=== PATIENT | female | born 1985 | race Caucasian/White ===

== ENCOUNTER 2017-05-04 14:21 | Emergency (ER) | payer BC ==
[2017-05-04 15:46] VITALS: BP 116/67
--- NOTE | 2017-05-04 15:50 | UC ---
Throat Pain/Nasal Mike HPI - HPI Summary HPI Summary: c/o nasal congestion, sore throat, sinus pressure, and productive cough worsening over 4 days. [ End ] - History of Current Complaint Chief Complaint: UCRespiratory Stated Complaint: sinus,cough,sore throat,ear pain Time Seen by Provider: 05/04/17 15:43 Hx Obtained From: Patient Hx Last Menstrual Period: 04/24/17 Onset/Duration: Gradual Onset Severity: Mild Cough: Productive - Allergies/Home Medications Allergies/Adverse Reactions: Allergies Allergy/AdvReac Type Severity Reaction Status Date / Time Penicillins Allergy Severe throat Verified 05/04/17 15:39 closes, rash,hard to breath Vancomycin Allergy Hives Verified 05/04/17 15:39 Home Medications: Home Medications Mesalamine (NF) [Lialda (NF)] 4 tab PO DAILY 05/04/17 [History Confirmed ] PMH/Surg Hx/FS Hx/Imm Hx Previously Healthy: Yes GI/ History: Other - UC Other GI/ History: UC Other History Of: Negative For: HIV, Hepatitis B, Hepatitis C, Anticoagulant Therapy - Surgical History Surgical History: Yes Surgery Procedure, Year, and Place: CHOLECYSTECTOMY. Abd surgery r/t abscess - Family History Known Family History: Positive: Cardiac Disease, Hypertension - Social History Occupation: Employed Full-time - Speech Lives: With Family Alcohol Use: Occasionally Substance Use Type: None Smoking Status (MU): Never Smoked Tobacco - Immunization History Most Recent Influenza Vaccination: Not the Season Review of Systems Constitutional: Negative, Fatigue Skin: Negative Eyes: Negative ENT: Negative, Sore Throat, Ear Ache, Nasal Discharge, Sinus Congestion, Sinus Pain/Tenderness Respiratory: Cough Cardiovascular: Negative Gastrointestinal: Negative Genitourinary: Negative Motor: Negative Neurovascular: Negative Musculoskeletal: Negative Neurological: Negative Psychological: Negative All Other Systems Reviewed And Are Negative: Yes Physical Exam Triage Information Reviewed: Yes Appearance: Well-Appearing, No Pain Distress, Well-Nourished Vital Signs: Initial Vital Signs Temp 98 F 05/04/17 15:35 Pulse 82 05/04/17 15:35 Resp 16 05/04/17 15:35 BP 116/67 05/04/17 15:35 Pulse Ox 99 05/04/17 15:35 Vital Signs Reviewed: Yes Eye Exam: Normal ENT Exam: Normal ENT: Positive: TMs normal, Other: - frontal and maxillary sinus tenderness to palpation Dental Exam: Normal Neck exam: Normal Neck: Positive: 1 Respiratory Exam: Normal Cardiovascular Exam: Normal Musculoskeletal Exam: Normal Neurological Exam: Normal Psychological Exam: Normal Skin Exam: Normal Throat Pain/Nasal Course/Dx - Course Course Of Treatment: With immune suppressant and the teeth sensitivity for a few days concern for this becoming bacterial . She will use her nasal spray, decongestant and cough suppressant and if sx worsen then to start doxy which she tolereates well in the past and aware of SE - Differential Dx/Diagnosis Differential Diagnosis/HQI/PQRI: Sinusitis, Tonsillitis, URI Provider Diagnoses: Sinusitis Discharge - Discharge Plan Condition: Good Disposition: HOME Prescriptions: Benzonatate CAP* [Tessalon 100 MG CAP*] 100 mg PO TID PRN #20 cap PRN Reason: Cough Doxycycline (Monohydrate) [Doxycycline Monohydrate] 100 mg PO BID #20 cap Patient Education Materials: Sinusitis (ED) Referrals: Luisito WHITE,Deep Nagel [Primary Care Provider] - 3 Days
== END 2017-05-04 16:05 | disposition home or self-care (01) ==
LOC: UCCORT 14:21
DX: J32.9 Chronic sinusitis, unspecified (principal); Z88.0 Allergy status to penicillin
CPT/HCPCS: 99212; G0463

== ENCOUNTER 2017-06-01 14:46 | Emergency (ER) | payer BC ==
[2017-06-01 17:03] VITALS: BP 137/67
--- NOTE | 2017-06-01 17:37 | UC ---
Skin Complaint HPI - HPI Summary HPI Summary: ROPE BURN TO RIGHT LOWER LEG SEVEN DAYS AGO, WAS HEALING BUT LAST TWO DAYS AREA HAS [id number] MORE RED AND SWOLLEN. NO DISCHARGE. NO HX OF MRSA. NO NEW INJURY. - History of Current Complaint Chief Complaint: UCSkin Time Seen by Provider: 06/01/17 17:06 Stated Complaint: ROPE BURN RIGHT LOWER LEG Hx Obtained From: Patient Hx Last Menstrual Period: 05/26/17 Onset/Duration: Gradual Onset, Lasting Weeks, Still Present Skin Exposure Onset/Duration: Days Ago Onset Severity: Mild Current Severity: Mild Pain Intensity: 1 Pain Scale Used: 0-10 Numeric Location: Discrete - RIGHT LOWER LEG Character: Redness, Raised, Painful Aggravating: Touch Associated Signs & Symptoms: Positive: Tenderness. Negative: Fever, Chills, Chest Pain, Hoarseness, Throat Tightening, Drainage Related History: Trauma - Allergy/Home Medications Allergies/Adverse Reactions: Allergies Allergy/AdvReac Type Severity Reaction Status Date / Time Penicillins Allergy Severe throat Verified 06/01/17 17:03 closes, rash,hard to breath Vancomycin Allergy Hives Verified 06/01/17 17:03 Review of Systems Constitutional: Negative Skin: Rash - RIGHT LOWER LEG ROPE BURN, CELLULITIS 3CM X 3CM Eyes: Negative ENT: Negative Respiratory: Negative Cardiovascular: Negative Gastrointestinal: Negative Genitourinary: Negative Motor: Negative Neurovascular: Negative Musculoskeletal: Negative Neurological: Negative Psychological: Negative All Other Systems Reviewed And Are Negative: Yes PMH/Surg Hx/FS Hx/Imm Hx Previously Healthy: Yes Other History Of: Negative For: HIV, Hepatitis B, Hepatitis C, Anticoagulant Therapy - Surgical History Surgical History: Yes Surgery Procedure, Year, and Place: CHOLECYSTECTOMY. Abd surgery r/t abscess - Family History Known Family History: Positive: Cardiac Disease, Hypertension - Social History Occupation: Employed Full-time Lives: With Family Alcohol Use: Rare Substance Use Type: None Smoking Status (MU): Never Smoked Tobacco - Immunization History Most Recent Influenza Vaccination: Not the Season Physical Exam Triage Information Reviewed: Yes Appearance: Well-Appearing, No Pain Distress, Well-Nourished Vital Signs: Initial Vital Signs Temp 98.5 F 06/01/17 17:00 Pulse 59 06/01/17 17:00 Resp 16 06/01/17 17:00 BP 137/67 06/01/17 17:00 Pulse Ox 100 06/01/17 17:00 Vital Signs Reviewed: Yes Eye Exam: Normal ENT Exam: Normal ENT: Positive: Normal ENT inspection, TMs normal Dental Exam: Normal Neck exam: Normal Neck: Positive: Supple, Nontender Respiratory Exam: Normal Respiratory: Positive: Chest non-tender, Lungs clear, Normal breath sounds, No respiratory distress, No accessory muscle use Cardiovascular Exam: Normal Cardiovascular: Positive: RRR, No Murmur, Pulses Normal Abdominal Exam: Normal Abdomen Description: Positive: Nontender, No Organomegaly Musculoskeletal Exam: Normal Musculoskeletal: Positive: Strength Intact, ROM Intact Neurological Exam: Normal Psychological Exam: Normal Skin: Positive: rashes - RIGHT LOWER LEG ROPE BURN, TENDER ERYTHEMA 3CM X 3CM Course/Dx - Differential Diagnoses - Skin Complaint Differential Diagnoses: Abscess, Cellulitis, MRSA - Diagnoses Provider Diagnoses: RIGHT LOWER LEG ROPE BURN, CELLULITIS 3CM X 3CM Discharge - Discharge Plan Condition: Stable Disposition: HOME Prescriptions: DOXYcycline CAP(*) [DOXYcycline 100MG CAP(*)] 100 mg PO BID #10 cap Patient Education Materials: Cellulitis (ED) Referrals: Luisito WHITE,Deep Nagel [Primary Care Provider] - Images Front/Back of Body, Lg ([place]): 1 - RIGHT LOWER LEG ROPE BURN, CELLULITIS 3CM X 3CM
== END 2017-06-01 17:23 | disposition home or self-care (01) ==
LOC: UCCORT 14:46
DX: T24.001A Burn of unspecified degree of unspecified site of right lower limb, except ankle and foot, initial encounter (principal); L03.116 Cellulitis of left lower limb; X08.8XXA Exposure to other specified smoke, fire and flames, initial encounter; Y93.9 Activity, unspecified; Y92.9 Unspecified place or not applicable; Z90.49 Acquired absence of other specified parts of digestive tract; Z88.1 Allergy status to other antibiotic agents; Z88.0 Allergy status to penicillin
CPT/HCPCS: 99212; G0463

== ENCOUNTER 2017-10-29 13:40 | Emergency (ER) | payer BC ==
[2017-10-29 16:02] VITALS: BP 118/72
--- NOTE | 2017-10-29 16:18 | ED ---
Respiratory - HPI Summary HPI Summary: 32 yr old with complaint of sore throat, fatigue, right ear pain, mild cough. Onset last night. No fever, but has had some chills. 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 She has taken macrolides with no issues in the past. - History of Current Complaint Chief Complaint: UCGeneralIllness Stated Complaint: FEVER/ST Time Seen by Provider: 10/29/17 16:07 - Allergy/Home Medications Allergies/Adverse Reactions: Allergies Allergy/AdvReac Type Severity Reaction Status Date / Time Penicillins Allergy Severe throat Verified 10/29/17 16:02 closes, rash,hard to breath Vancomycin Allergy Hives Verified 10/29/17 16:02 Home Medications: Home Medications Ibuprofen TAB* [Motrin TAB* 600 MG] 600 mg PO Q6H PRN 10/29/17 [History Confirmed 10/29/17] PMH/Surg Hx/FS Hx/Imm Hx Endocrine/Hematology History: Denies: Hx Anticoagulant Therapy, Hx Diabetes, Hx Thyroid Disease Cardiovascular History: Denies: Hx Congestive Heart Failure, Hx Deep Vein Thrombosis, Hx Hypertension , Hx Myocardial Infarction, Hx Pacemaker/ICD Respiratory History: Reports: Hx Asthma Denies: Hx Chronic Obstructive Pulmonary Disease (COPD), Hx Lung Cancer, Hx Pneumonia, Hx Pulmonary Embolism GI History: Denies: Hx Gall Bladder Disease, Hx Gastrointestinal Bleed, Hx Ulcer, Hx Urosepsis History: Reports: Hx Kidney Stones - Nothing recent. Denies: Hx Renal Disease Neurological History: Denies: Hx Dementia, Hx Migraine, Hx Seizures, Hx Transient Ischemic Attacks (TIA) Psychiatric History: Denies: Hx Anxiety, Hx Depression, Hx Schizophrenia, Hx Bipolar Disorder - Surgical History Surgery Procedure, Year, and Place: CHOLECYSTECTOMY. 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 - Family History Known Family History: Positive: Cardiac Disease, Hypertension - Social History Alcohol Use: Rare Substance Use Type: Reports: None Smoking Status (MU): Never Smoked Tobacco Review of Systems Positive: Chills, Fatigue Positive: Sore Throat, Ear Ache Positive: Cough All Other Systems Reviewed And Are Negative: Yes Physical Exam Triage Information Reviewed: Yes Vital Signs On Initial Exam: Initial Vitals Temp Pulse Resp BP Pulse Ox 98.8 F 67 16 118/72 100 10/29/17 15:58 10/29/17 15:58 10/29/17 15:58 10/29/17 15:58 10/29/17 15:58 Vital Signs Reviewed: Yes Appearance: Positive: Well-Appearing, No Pain Distress Skin: Positive: Warm, Skin Color Reflects Adequate Perfusion Head/Face: Positive: Normal Head/Face Inspection Eyes: Positive: EOMI ENT: Positive: Pharyngeal erythema, Nasal congestion, TM red - right with effusion. Negative: Muffled voice, Hoarse voice Neck: Positive: Supple, Nontender Cardiovascular: Positive: RRR. Negative: Murmur Abdomen Description: Positive: Nontender Musculoskeletal: Positive: Strength/ROM Intact Neurological: Positive: Sensory/Motor Intact, Alert, Oriented to Person Place, Time, CN Intact II-III Psychiatric: Positive: Normal - Raphael Coma Scale Best Eye Response: 4 - Spontaneous Best Motor Response: 6 - Obeys Commands Best Verbal Response: 5 - Oriented Diagnostics - Vital Signs Vital Signs Temp Pulse Resp BP Pulse Ox 10/29/17 15:58 98.8 F 67 16 118/72 100 - Laboratory Lab Statement: Any lab studies that have been ordered have been reviewed, and results considered in the medical decision making process. Disposition - Course Course Of Treatment: 32 yr old female with URI and right OM. - Diagnoses Provider Diagnoses: Otitis media Discharge - Discharge Plan Condition: Good Disposition: HOME Prescriptions: Clarithromycin TAB* [Biaxin 500 MG TAB*] 500 mg PO BID #20 tab Patient Education Materials: Otitis Media (ED), Pharyngitis (ED) Forms: *Work Release Referrals: No Primary Care Phys,NOPCP [Primary Care Provider] - [facility] [Outside]
== END 2017-10-29 16:50 | disposition home or self-care (01) ==
LOC: UCCORT 13:40
DX: H66.91 Otitis media, unspecified, right ear (principal); J02.9 Acute pharyngitis, unspecified; R53.83 Other fatigue; R05 Cough; J45.909 Unspecified asthma, uncomplicated; Z87.442 Personal history of urinary calculi; Z90.49 Acquired absence of other specified parts of digestive tract; Z88.1 Allergy status to other antibiotic agents; Z88.0 Allergy status to penicillin
CPT/HCPCS: 87502; 99212; G0463

== ENCOUNTER 2017-11-26 07:42 | Emergency (ER) | payer BC ==
[2017-11-26 08:17] VITALS: BP 108/67
--- NOTE | 2017-11-26 08:29 | UC ---
Abdominal Pain Female HPI - HPI Summary HPI Summary: abdominal pain x 2 days + nausea and vomiting , + diarrhea + fever, chills, body aches no cough , + sore throat, - History of Current Complaint Chief Complaint: UCGeneralIllness Stated Complaint: VOMITING,SORE THROAT Time Seen by Provider: 11/26/17 08:20 Hx Obtained From: Patient Hx Last Menstrual Period: 11/24/17 Onset/Duration: Gradual Onset, Lasting Days - 2, Still Present Severity Initially: Moderate Severity Currently: Moderate Pain Intensity: 1 Location: Diffuse Radiates: No Character: Colicy Aggravating Factor(s): Food Alleviating Factor(s): Nothing Associated Signs and Symptoms: Positive: Fever, Nausea, Vomiting, Diarrhea. Negative: Cough, Chest Pain, Dizzy, Back Pain, Constipation, Blood in Stool, Urinary Symptoms, Decreased Appetite, Vaginal Bleeding, Vaginal Discharge Allergies/Adverse Reactions: Allergies Allergy/AdvReac Type Severity Reaction Status Date / Time MS Penicillins [Penicillins] Allergy Severe throat Verified 11/26/17 08:08 closes, rash,hard to breath MS Vancomycin [Vancomycin] Allergy Hives Verified 11/26/17 08:08 Home Medications: Home Medications Ciprofloxacin TAB* [Cipro 500 MG TAB*] 500 mg PO BID 11/26/17 [History Confirmed 11/26/17] Mesalamine [Lialda] 4 tab PO DAILY 11/26/17 [History Confirmed 11/26/17] metroNIDAZOLE TAB* [Flagyl 250 mg TAB*] mg PO BID 11/26/17 [History] PMH/Surg Hx/FS Hx/Imm Hx - Additional Past Medical History Additional PMH: colitis Other History Of: Negative For: HIV, Hepatitis B, Hepatitis C, Anticoagulant Therapy - Surgical History Surgical History: Yes Surgery Procedure, Year, and Place: CHOLECYSTECTOMY. Abd surgery r/t abscess - Family History Known Family History: Positive: Cardiac Disease, Hypertension - Social History Alcohol Use: Rare Substance Use Type: None Smoking Status (MU): Never Smoked Tobacco - Immunization History Most Recent Influenza Vaccination: Not the Season Review of Systems Constitutional: Negative Skin: Negative Eyes: Negative ENT: Negative Respiratory: Negative Gastrointestinal: Vomiting, Diarrhea, Nausea Is Patient Immunocompromised?: No All Other Systems Reviewed And Are Negative: Yes Physical Exam Triage Information Reviewed: Yes Appearance: Well-Appearing, No Pain Distress, Well-Nourished Vital Signs: Initial Vital Signs Temp 98.1 F 11/26/17 08:11 Pulse 70 11/26/17 08:11 BP 108/67 11/26/17 08:11 Pulse Ox 100 11/26/17 08:11 Vital Signs Reviewed: Yes Eye Exam: Normal Eyes: Positive: Conjunctiva Clear ENT: Positive: Normal ENT inspection, Hearing grossly normal, Pharynx normal Neck: Positive: Supple, Nontender, No Lymphadenopathy Respiratory: Positive: Chest non-tender, Lungs clear, Normal breath sounds Cardiovascular: Positive: RRR, No Murmur, Pulses Normal Abdomen Description: Positive: No Organomegaly, Soft, Other: - diffuse tenderenss. Negative: CVA Tenderness (R), CVA Tenderness (L), Distended, Guarding Bowel Sounds: Positive: Present Musculoskeletal Exam: Normal Skin Exam: Normal Abd Pain Female Course/Dx - Differential Dx/Diagnosis Provider Diagnoses: viral illness Discharge - Discharge Plan Condition: Stable Disposition: HOME Patient Education Materials: Acute Nausea and Vomiting (ED) Forms: *Work Release Referrals: Luisito WHITE,Deep Nagel [Primary Care Provider] - 7 Days
== END 2017-11-26 08:55 | disposition home or self-care (01) ==
LOC: UCCORT 07:42
DX: B34.9 Viral infection, unspecified (principal); K52.9 Noninfective gastroenteritis and colitis, unspecified; Z79.2 Long term (current) use of antibiotics
CPT/HCPCS: 87502; 99211; G0463

== ENCOUNTER 2017-12-15 17:12 | Emergency (ER) | payer BC ==
[2017-12-15 19:09] VITALS: BP 114/78
[2017-12-15] MEDS ORDERED: Lidocaine 2% VISCOUS* 15 ML UDC PO ONE ×2 (19:55→20:14)
--- NOTE | 2017-12-15 19:59 | UC ---
Throat Pain/Nasal Mike HPI - HPI Summary HPI Summary: Pt with med hx including UC. Pt with recent flare and was given abx and 3 week pred taper. Pt reports abdominal pain yesterday which improved today. Pt here here today with progressive mouth pain and devlepment of ulcer-like sores on tongue, palate, mucous membranes. Pt reports discomfort with eating and drinking. No h/o similar. Reports tactile temp. No dysuria, hematuria, diarrhea. Pt denies lesions on hands or feet. Pt works in a daycare with strep going around. Pt's medications reviewed this visit - History of Current Complaint Chief Complaint: UCRespiratory Stated Complaint: SORES/SPOTS ON TONGUE/THROAT Time Seen by Provider: 12/15/17 19:27 Hx Last Menstrual Period: 2 weeks ago Onset/Duration: Gradual Onset Severity: Mild Pain Intensity: 2 Pain Scale Used: 0-10 Numeric Associated Signs & Symptoms: Positive: Fever - tactile. Negative: Drooling - Allergies/Home Medications Allergies/Adverse Reactions: Allergies Allergy/AdvReac Type Severity Reaction Status Date / Time Penicillins Allergy Severe Anaphylatic Verified 12/15/17 18:58 Shock vancomycin Allergy Hives Verified 12/15/17 18:58 Home Medications: Home Medications Mesalamine 4 tab DAILY 12/15/17 [History Confirmed 12/15/17] Venlafaxine EXT RELEASE CAP* [Effexor Xr CAP*] 1 tab DAILY 12/15/17 [History Confirmed 12/15/17] predniSONE TAB* [Deltasone TAB*] 30 mg PO DAILY 12/15/17 [History Confirmed 01/29] PMH/Surg Hx/FS Hx/Imm Hx Previously Healthy: Yes Other History Of: Negative For: HIV, Hepatitis B, Hepatitis C, Anticoagulant Therapy - Surgical History Surgical History: Yes Surgery Procedure, Year, and Place: CHOLECYSTECTOMY. Abd surgery r/t abscess - Family History Known Family History: Positive: Cardiac Disease, Hypertension - Social History Occupation: Employed Full-time Lives: With Family Alcohol Use: Rare Substance Use Type: None Smoking Status (MU): Never Smoked Tobacco - Immunization History Most Recent Influenza Vaccination: Not the 2014/2015 Season Review of Systems Constitutional: Fever ENT: Sore Throat, Other - oral lesions Respiratory: Negative Cardiovascular: Negative Gastrointestinal: Abdominal Pain - resolved Genitourinary: Negative Motor: Negative Neurovascular: Negative All Other Systems Reviewed And Are Negative: Yes Physical Exam Triage Information Reviewed: Yes Appearance: Well-Appearing, No Pain Distress, Well-Nourished Vital Signs: Initial Vital Signs Temp 96.8 F 12/15/17 19:01 Pulse 67 12/15/17 19:01 Resp 16 12/15/17 19:01 BP 114/78 12/15/17 19:01 Pulse Ox 100 12/15/17 19:01 Vital Signs Reviewed: Yes Eye Exam: Normal Eyes: Positive: Conjunctiva Clear ENT: Positive: Nasal congestion, TMs normal, Other - Pt with several (approx 15 ) ulcerative small appearing lesions on soft palate, tongue, buccal membrane and under tongue no bleeding uvula midline mild erythema no exuduate mmoist Dental Exam: Normal Neck exam: Normal Neck: Positive: Supple, Nontender, No Lymphadenopathy Respiratory Exam: Normal Respiratory: Positive: Chest non-tender, Lungs clear, Normal breath sounds, No respiratory distress, No accessory muscle use Cardiovascular Exam: Normal Cardiovascular: Positive: RRR, No Murmur, Pulses Normal Abdominal Exam: Normal Abdomen Description: Positive: Nontender, No Organomegaly Bowel Sounds: Positive: Present Musculoskeletal Exam: Normal Musculoskeletal: Positive: Strength Intact Neurological Exam: Normal Psychological Exam: Normal Skin Exam: Normal Skin: Positive: Other - no lesions on hands, feet or external lip Throat Pain/Nasal Course/Dx - Course Assessment/Plan: Pt with multiple small oral ulcerative appearing lesions in setting of recent uri, UC flare on prednisone. suspect herpangia and less likely hand/foot/mouth although pt does work in daycare. symptomtic support. secretion precaution. Trialed lidocaine with good improvement of discomfort - will rx. pt well hydrated appearing on exam. return precautions. pt comfortable with plan - Differential Dx/Diagnosis Provider Diagnoses: stomatitis Discharge - Discharge Plan Condition: Stable Disposition: HOME Prescriptions: Lidocaine 2% VISCOUS* [Xylocaine 2% Viscous*] 15 ml SWISH SPIT Q6H PRN #1 btl PRN Reason: throat pain Patient Education Materials: Gingivostomatitis (ED) Forms: *Work Release Referrals: Luisito WHITE,Deep Nagel [Primary Care Provider] - Additional Instructions: - Okay to alternate ibuprofen (advil, Motrin) 600mg and tylenol every 3 hours for pain. Take with food - stay well hydrated - avoid excess caffeine and alcohol - get plenty of restful sleep - cold foods (popsicle, jello, apple sauce) may be soothing to your throat - okay to gargle and spit with warm salt water, 2-3 times a day - okay to use oral numbing medication as prescribed - If develop ongoing fevers, vomiting, are unable to stay hydrated, recurrent abdominal pain or have other concerns it is recommended you go to the emergency department for IV fluid and laboratory test - contact your doctor or return with questions or concerns
== END 2017-12-15 20:27 | disposition home or self-care (01) ==
LOC: UCCORT 17:12
DX: K12.1 Other forms of stomatitis (principal); Z20.89 Contact with and (suspected) exposure to other communicable diseases; Z88.1 Allergy status to other antibiotic agents; Z88.0 Allergy status to penicillin
CPT/HCPCS: 87651; 99212; G0463

== ENCOUNTER 2018-08-05 20:36 | Emergency (ER) | payer BC ==
--- OUTSIDE RECORDS SUMMARY | 2018-08-05 20:52 | XMS REPORT ---
:1985 Author Organization [facility] Address [address] [place] [address] Support Name Relationship Address Phone Susy Mendez Unavailable [address] [phone] [place] [address] Robert Mendez Unavailable 9 10/15 [facility] [phone] [place] [address] Care Team Providers Name Role Phone Ferguson Maddy Unavailable Unavailable PROBLEMS ALLERGIES ENCOUNTERS IMMUNIZATIONS No Known Immunizations SOCIAL HISTORY No smoking Hx information available REASON FOR REFERRAL FUNCTIONAL STATUS PLAN OF CARE VITAL SIGNS MEDICATIONS PROCEDURES RESULTS REASON FOR VISIT Insurance Providers MEDICAL (GENERAL) HISTORY
--- OUTSIDE RECORDS SUMMARY | 2018-08-05 20:52 | XMS REPORT ---
:1985 Author Organization [facility] Address [address] [place] [address] Support Name Relationship Address Phone Susy Mendez Unavailable [address] [phone] [place] [address] Robert Mendez Unavailable 9 10/15 [facility] [phone] [place] [address] Care Team Providers Name Role Phone Maddy Ferguson Unavailable Unavailable PROBLEMS Type Condition ICD9-CM Code [id number] Code Onset Condition SNOMED Code Dates Status Problem Excessive and N92.0 Active 848827654 frequent menstruation Problem Irregular N92.6 Active [id number] menstruation, unspecified ALLERGIES No Information ENCOUNTERS Encounter Location Date Diagnosis [facility] [address] Aug, OBGYN [place], [place] [id number] [facility] [address] Jul, [place] [id number] [facility] Jul, Encounter for insertion OBGYN [facility], of intrauterine [place] [id number] contraceptive device Z30.430 [facility] [address] Jun, OBGYN [place], [place] [id number] [facility] Jun, Excessive and frequent OBGYN [facility], menstruation N92.0 [place] [id number] [facility] [address] [place], May, Excessive and frequent [place] [id number] menstruation N92.0 [place] [facility] May, Excessive and frequent OBGYN [facility], menstruation N92.0 [place] [id number] [place] [facility] Apr, OBGYN [facility] [id number] [place] [facility] Apr, Excessive and frequent OBGYN [facility], menstruation N92.0 [place] [id number] [place] [facility] Apr, Excessive and frequent OBGYN [facility], menstruation N92.0 and [place] [id number] Irregular menstruation, unspecified N92.6 [place] [facility] Apr, Excessive and frequent OBGYN [facility], menstruation N92.0 [place] [id number] [place] [facility] 103 Mar, Irregular menstruation, OBGYN [facility], unspecified N92.6 [place] [id number] [place] [facility] Dec, OBGYN [place], [place] [id number] [place] [facility] Dec, OBGYN [place] [id number] [place] [facility] Nov, Irregular menstruation, OBGYN [facility], unspecified N92.6 and [place] [id number] Encounter for contraceptive management, unspecified Z30.9 [facility] Nov, Irregular menstruation, OBGYN [facility], unspecified N92.6 and [place] [id number] Pelvic and perineal pain R10.2 [place] [facility] Nov, OBGYN [place], [place] [id number] [place] [facility] Aug, OBGYN [place] [id number] [place] [facility] Aug, [facility] [place] [id number] (general) (routine) with abnormal findings Z01.411 ; PELVIC PAIN 625.9 ; Irregular menstruation, unspecified N92.6 and Family history of malignant neoplasm of breast Z80.3 [place] [facility] 18 Jun, 2017 OBGYN [place], [place] [id number] [place] [facility] 103 Jun, Encounter for OBGYN [facility], gynecological examination [place] [id number] (general) (routine) without abnormal findings Z01.419 [place] [facility] 103 16 Jun, 2015 ROUTINE ASSISTANT PROFESSOR OF PHYSICS EXAMINATION OBGYN [facility], V72[id number] [facility] Jun, ROUTINE ASSISTANT PROFESSOR OF PHYSICS EXAMINATION OBGYN [facility], V72[address] [place] [id number] [facility] Mar, OBG[place], [place] [id number] [place] [facility] [address] [facility] May, ROUTINE ASSISTANT PROFESSOR OF PHYSICS EXAMINATION [address] [place], V72.31 [place] [id number] [place] [facility] May, ROUTINE ASSISTANT PROFESSOR OF PHYSICS EXAMINATION OBGYN [facility], V72.31 and PAP SMEAR W/O [place] [id number] ASSISTANT PROFESSOR OF PHYSICS EXAM V76.2 [facility] May, ROUTINE ASSISTANT PROFESSOR OF PHYSICS EXAMINATION OBGYN [facility], V72.[address] [place] [id number] [facility] May, OBGYN [place], [place] [id number] [place] [facility] May, OBG[place], [place] [id number] [place] [facility] May, OBGYN [place], [place] [id number] [place] [facility] 103 Jun, ROUTINE ASSISTANT PROFESSOR OF PHYSICS EXAMINATION OBGYN [facility], V72.31 ; PAP SMEAR W/O [place] [id number] ASSISTANT PROFESSOR OF PHYSICS EXAM V76.2 and CONTRACEPT SURVEILL NOS V25.40 [place] [facility] May, OBGYN [place], [place] [id number] [place] [facility] 103 Apr, ROUTINE ASSISTANT PROFESSOR OF PHYSICS EXAMINATION OBGYN [facility], V72.31 [place] [id number] [place] [facility] 103 Apr, ROUTINE ASSISTANT PROFESSOR OF PHYSICS EXAMINATION OBGYN [facility], V72.31 [place] [id number] [place] [facility] 103 Apr, PELVIC PAIN 625.9 and OBGYN [facility], VAGINAL DISCHARGE 623.5 [place] [id number] [place] [facility] 103 Apr, Ovarian cyst NOS 620.2 OBGYN [place], [place] [id number] [place] [facility] 103 Apr, ROUTINE ASSISTANT PROFESSOR OF PHYSICS EXAMINATION OBGYN [facility], V72.31 and OVARIAN CYST [place] [id number] NEC/NOS 620.2 IMMUNIZATIONS No Known Immunizations SOCIAL HISTORY Never Assessed REASON FOR REFERRAL FUNCTIONAL STATUS PLAN OF CARE VITAL SIGNS MEDICATIONS Unknown Medications PROCEDURES No Known procedures RESULTS No Results REASON FOR VISIT cramping and fever Insurance Providers [facility] Member Patient Patient Patient Patient Patient Subscriber Subscriber Subscriber Group Insurance Plan Plan Plan Plan ID Relationship Address Phone Name Date of ID Name Date of No Type Insurance Insurance Insurance Coverage to Subscriber Address Phone Name Dates [facility] [address] [facility] self Susy 1985 [id number] Blue [id number] 89 Blue Mendez 7 Cross/[place] Cross/Blue Shield [address] Shield Blue [address] Blue self Susy 1985 [id number] Cross/Blue [id number] 16 Cross/Blue Mendez 2 03 Shield [facility] [address] Blue [address] Blue self Susy 1985 [id number] Cross/Blue [id number] 16 Cross/Blue Mendez 0 Shield [facility] [address] [address] [address] [facility] Susy 1985 [id number] Blue [id number] 89 Blue Mendez 6 Cross/Blue [place] Cross/Blue Shield [address] Shield [place] [address] Loraine Jain 1985 [id number] Blue [address]12 89 Blue Mendez 7 Cross/[place] Cross/Blue Shield [address] Shield [place] [phone] Loraine Jain [id number] Blue [id number] 89 Blue Mendez 7 Cross/Blue [place] Cross/Blue Shield [id number] Shield MEDICAL (GENERAL) HISTORY Type Description Date Medical History Asthma Medical History hypothyroidism - now thyroid fine, not on medication at this time Medical History anemia Medical History blood transfusion Medical History Ulcerative colitis Medical History kidney stones 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
[2018-08-05 21:33] VITALS: BP 130/76
[2018-08-05] MEDS ORDERED: Clarithromycin TAB* 500 MG PO ONE (21:53)
--- NOTE | 2018-08-05 21:58 | ED ---
Throat Pain/Nasal Congestion - HPI Summary HPI Summary: 33 yr old female with several days of runny nose, sinus pressure, ear pain, and coughing. She states her ear hurts a lot tonight. Denies drooling. No SOB. - History of Current Complaint Chief Complaint: UCGeneralIllness Time Seen by Provider: 08/05/18 21:50 - Allergies/Home Medications Allergies/Adverse Reactions: Allergies Allergy/AdvReac Type Severity Reaction Status Date / Time Penicillins Allergy Severe Anaphylatic Verified 08/05/18 21:29 Shock vancomycin Allergy Hives Verified 08/05/18 21:29 Home Medications: Home Medications Iud 08/05/18 [History] Mesalamine [Lialda] 1.2 gm PO DAILY 08/05/18 [History Confirmed 08/05/18] PMH/Surg Hx/FS Hx/Imm Hx Endocrine/Hematology History: Denies: Hx Anticoagulant Therapy, Hx Diabetes, Hx Thyroid Disease Cardiovascular History: Denies: Hx Congestive Heart Failure, Hx Deep Vein Thrombosis, Hx Hypertension , Hx Myocardial Infarction, Hx Pacemaker/ICD Respiratory History: Reports: Hx Asthma Denies: Hx Chronic Obstructive Pulmonary Disease (COPD), Hx Lung Cancer, Hx Pneumonia, Hx Pulmonary Embolism GI History: Denies: Hx Gall Bladder Disease, Hx Gastrointestinal Bleed, Hx Ulcer, Hx Urosepsis History: Reports: Hx Kidney Stones - Nothing recent. Denies: Hx Renal Disease Neurological History: Denies: Hx Dementia, Hx Migraine, Hx Seizures, Hx Transient Ischemic Attacks (TIA) Psychiatric History: Denies: Hx Anxiety, Hx Depression, Hx Schizophrenia, Hx Bipolar Disorder - Surgical History Surgery Procedure, Year, and Place: CHOLECYSTECTOMY. 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 - Family History Known Family History: Positive: Cardiac Disease, Hypertension - Social History Occupation: Employed Full-time Alcohol Use: Rare Substance Use Type: Reports: None Smoking Status (MU): Never Smoked Tobacco Review of Systems Constitutional: Negative Positive: Sore Throat, Ear Ache, Nasal Discharge Positive: Cough All Other Systems Reviewed And Are Negative: Yes Physical Exam Triage Information Reviewed: Yes Vital Signs On Initial Exam: Initial Vitals Temp Pulse Resp BP Pulse Ox 98.1 F 67 15 130/76 100 08/05/18 21:26 08/05/18 21:26 08/05/18 21:26 08/05/18 21:26 08/05/18 21:26 Vital Signs Reviewed: Yes Appearance: Positive: Well-Appearing, No Pain Distress Skin: Positive: Warm, Skin Color Reflects Adequate Perfusion Head/Face: Positive: Normal Head/Face Inspection Eyes: Positive: EOMI, SANDRO ENT: Positive: Pharyngeal erythema, Nasal congestion, Nasal drainage, TM dull - left, TM red - left, Sinus tenderness Neck: Positive: Supple, Nontender Respiratory/Lung Sounds: Positive: Clear to Auscultation, Breath Sounds Present Cardiovascular: Positive: RRR. Negative: Murmur Abdomen Description: Positive: Nontender Musculoskeletal: Positive: Strength/ROM Intact Neurological: Positive: Sensory/Motor Intact, Alert, Oriented to Person Place, Time, CN Intact II-III Psychiatric: Positive: Normal - [place] Coma Scale Best Eye Response: 4 - Spontaneous Best Motor Response: 6 - Obeys Commands Best Verbal Response: 5 - Oriented Coma Scale Total: 15 Diagnostics - Vital Signs Vital Signs Temp Pulse Resp BP Pulse Ox 08/05/18 21:26 98.1 F 67 15 130/76 100 - Laboratory Lab Statement: Any lab studies that have been ordered have been reviewed, and results considered in the medical decision making process. EENT Course/Dx - Course Course Of Treatment: Sinusitis, OM. Rx Biaxin - Diagnoses Provider Diagnoses: Sinusitis, Otitis media Discharge - Sign-Out/Discharge Documenting (check all that apply): Patient Departure All imaging exams completed and their final reports reviewed: No Studies - Discharge Plan Condition: Good Disposition: HOME Prescriptions: Clarithromycin TAB* [Biaxin 500 MG TAB*] 500 mg PO BID #20 tab Patient Education Materials: Sinusitis (ED), Ear Infection (ED) Referrals: Luisito WHITE,Deep Nagel [Primary Care Provider] - - Billing Disposition and Condition Condition: GOOD Disposition: Home
== END 2018-08-05 22:02 | disposition home or self-care (01) ==
LOC: UCCORT 20:36
DX: J32.9 Chronic sinusitis, unspecified (principal); H66.90 Otitis media, unspecified, unspecified ear; Z88.0 Allergy status to penicillin; Z88.1 Allergy status to other antibiotic agents
CPT/HCPCS: 99212; A9270-GY; G0463

== ENCOUNTER 2018-08-11 12:01 | Emergency (ER) | payer BC ==
--- NOTE | 2018-08-11 13:59 | UC ---
Respiratory Complaint HPI - HPI Summary HPI Summary: 33 yo female presents with fatigue and worsening cough. She tells me that she was seen here last week and dx'd with a sinus infection and left ear infection and placed on Biaxin. Her sinuses and ear are feeling better, but she says that over the last 2-3 days she has had a worsening cough that is keeping her up at night. Says that her fever was 101F yesterday. Chills have been intermittent. Denies sore throat, SOB, chest pain, abdominal pain. - History of Current Complaint Stated Complaint: RECHECK; CHILLS AND WORSENING COUGH Time Seen by Provider: 08/11/18 13:59 Hx Obtained From: Patient Hx Last Menstrual Period: 08/02/18 Severity Initially: Mild Severity Currently: Mild Pain Intensity: 2 Pain Scale Used: 0-10 Numeric Character: Cough: Nonproductive - Allergies/Home Medications Allergies/Adverse Reactions: Allergies Allergy/AdvReac Type Severity Reaction Status Date / Time Penicillins Allergy Severe Anaphylatic Verified 08/11/18 13:43 Shock vancomycin Allergy Hives Verified 08/11/18 13:43 Home Medications: Home Medications Acetaminophen [Non-Aspirin Extra Strength] 1,000 mg PO PRN 08/11/18 [History] PMH/Surg Hx/FS Hx/Imm Hx - Additional Past Medical History Additional PMH: IBD Asthma Psychological History: Anxiety, Depression Other History Of: Negative For: HIV, Hepatitis B, Hepatitis C, Anticoagulant Therapy - Surgical History Surgical History: Yes Surgery Procedure, Year, and Place: CHOLECYSTECTOMY. Abd surgery r/t abscess - Family History Known Family History: Positive: Cardiac Disease, Hypertension - Social History Occupation: Employed Full-time Lives: With Family Alcohol Use: Rare Substance Use Type: None Smoking Status (MU): Never Smoked Tobacco - Immunization History Most Recent Influenza Vaccination: Not the 2015/2015 Season Review of Systems Constitutional: Fever, Fatigue Skin: Negative Eyes: Negative ENT: Negative Respiratory: Cough Cardiovascular: Negative Gastrointestinal: Negative Neurological: Negative Psychological: Negative All Other Systems Reviewed And Are Negative: Yes Physical Exam - Summary Physical Exam Summary: GENERAL: NAD. WDWN. No pain distress. SKIN: No rashes, sores, lesions, or open wounds. HEENT: Head: AT/NC Eyes: EOM intact. Conjunctiva clear without inflammation or discharge. Ears: Hearing grossly normal. TMs intact, no bulging, erythema, or edema. Nose: Nasal mucosa pink and moist. NTTP maxillary and frontal sinus. Throat: Posterior oropharynx without exudates, erythema, or tonsillar enlargement. Uvula midline. NECK: Supple. Nontender. No lymphadenopathy. CHEST: CTAB. No r/r/w. No accessory muscle use. Breathing comfortably and in no distress. CV: RRR. Without m/r/g. Pulses intact. Cap refill <2seconds NEURO: Alert. PSYCH: Age appropriate behavior. Triage Information Reviewed: Yes Vital Signs: Vital Signs: Temp Pulse Resp BP Pulse Ox 97.3 F 71 20 109/75 100 08/11/18 13:45 08/11/18 13:45 08/11/18 13:45 08/11/18 13:45 08/11/18 13:45 Vital Signs Reviewed: Yes Respiratory Course/Dx - Course Course Of Treatment: Suspect bronchitis. Will treat with tessalon, cough syrup at bedtime, and prednisone. Advised to complete the remaining course of her Biaxin. - Differential Dx/Diagnosis Provider Diagnoses: Bronchitis Discharge - Sign-Out/Discharge Documenting (check all that apply): Patient Departure All imaging exams completed and their final reports reviewed: No Studies - Discharge Plan Condition: Stable Disposition: HOME Prescriptions: Benzonatate CAP* [Tessalon 100 MG CAP*] 100 mg PO TID PRN #21 cap PRN Reason: Cough Codeine Phosphate/Guaifenesin [Guaifen-Codeine 100-10 mg/5 ml] 5 ml PO BEDTIME PRN #35 ml MDD 5mL PRN Reason: Cough predniSONE TAB* [Deltasone 20 MG TAB*] 40 mg PO DAILY #13 tab Patient Education Materials: Acute Bronchitis (ED) Forms: *Work Release Referrals: Luisito WHITE,Deep Nagel [Primary Care Provider] - Additional Instructions: If you develop a fever, shortness of breath, chest pain, new or worsening symptoms - please call your PCP or go to the ED. - Billing Disposition and Condition Condition: STABLE Disposition: Home
[2018-08-11 14:02] VITALS: BP 109/75
== END 2018-08-11 14:20 | disposition home or self-care (01) ==
LOC: UCCORT 12:01
DX: J40 Bronchitis, not specified as acute or chronic (principal); Z88.0 Allergy status to penicillin; Z88.1 Allergy status to other antibiotic agents
CPT/HCPCS: 99212; G0463

== ENCOUNTER 2018-11-11 15:32 | Emergency (ER) | payer BC ==
[2018-11-11 16:09] VITALS: BP 119/73
--- NOTE | 2018-11-11 16:29 | UC ---
Ear Complaint HPI - HPI Summary HPI Summary: 33-year-old woman comes in with a chief complaint of right ear pain. Patient started with upper respiratory tract infection symptoms yesterday with fever bodyaches runny nose. Her right ear gradually started hurting. It's gotten a lot worse today. Patient reports that in the past when she gets sick she quite often gets an otitis media. She is on medication for colitis. She does have a runny nose mild sore throat and myalgias are much better now. The pain does radiate down the neck on the right side. Pain is not worse by pressing on the tragus. - History of Current Complaint Chief Complaint: UCEar Stated Complaint: RIGHT EAR COMPLAINT Time Seen by Provider: 11/11/18 16:19 Hx Last Menstrual Period: IUD Pain Intensity: 3 - Allergies/Home Medications Allergies/Adverse Reactions: Allergies Allergy/AdvReac Type Severity Reaction Status Date / Time Penicillins Allergy Severe Anaphylatic Verified 11/11/18 16:05 Shock vancomycin Allergy Hives Verified 11/11/18 16:05 PMH/Surg Hx/FS Hx/Imm Hx Previously Healthy: Yes GI/ History: Other - COLITIS Other History Of: Negative For: HIV, Hepatitis B, Hepatitis C, Anticoagulant Therapy - Surgical History Surgical History: Yes Surgery Procedure, Year, and Place: CHOLECYSTECTOMY. Abd surgery r/t abscess - Family History Known Family History: Positive: Cardiac Disease, Hypertension - Social History Alcohol Use: Rare Substance Use Type: None Smoking Status (MU): Never Smoked Tobacco - Immunization History Most Recent Influenza Vaccination: Not the 2014/2015 Season Review of Systems All Other Systems Reviewed And Are Negative: Yes Constitutional: Positive: Fever Skin: Positive: Negative Eyes: Positive: Negative ENT: Positive: Sore Throat, Ear Ache, Nasal Discharge Respiratory: Positive: Negative Cardiovascular: Positive: Negative Gastrointestinal: Positive: Negative Motor: Positive: Negative Neurovascular: Positive: Negative Musculoskeletal: Positive: Negative Neurological: Positive: Negative Psychological: Positive: Negative Is Patient Immunocompromised?: Yes - TAKING MESALAMINE Physical Exam Triage Information Reviewed: Yes Appearance: Well-Appearing, No Pain Distress, Well-Nourished Vital Signs: Initial Vital Signs Temp 97.4 F 11/11/18 16:06 Pulse 57 11/11/18 16:06 Resp 16 11/11/18 16:06 BP 119/73 11/11/18 16:06 Pulse Ox 100 11/11/18 16:06 Vital Signs Reviewed: Yes Eye Exam: Normal Eyes: Positive: Conjunctiva Clear ENT: Positive: Pharyngeal erythema, Nasal congestion, Nasal drainage, TM bulging - RT, TM dull - RT, Uvula midline Dental Exam: Normal Dental: Negative: Gross Decay/Caries @ Neck exam: Normal Neck: Positive: Supple, Nontender Respiratory: Positive: Lungs clear, Normal breath sounds, No respiratory distress Cardiovascular: Positive: RRR Musculoskeletal Exam: Normal Musculoskeletal: Positive: Strength Intact, ROM Intact Neurological Exam: Normal Neurological: Positive: Alert, Muscle Tone Normal Psychological Exam: Normal Psychological: Positive: Age Appropriate Behavior Skin Exam: Normal Ear Complaint Course/Dx - Course Course Of Treatment: DISCUSSED VIRAL VERSES BACTERIAL INFECTION AND THE ROLE OF ANTIBIOTICS. THE PATIENT WISHES TO BE ON ANTIBIOTIC AT THIS TIME - Differential Dx/Diagnosis Provider Diagnosis: Right serous otitis media Discharge - Sign-Out/Discharge Documenting (check all that apply): Patient Departure All imaging exams completed and their final reports reviewed: No Studies - Discharge Plan Condition: Stable Disposition: HOME Prescriptions: Azithromyxin VINCENZO (NF) [Z-Vincenzo (Zithromax) 250 mg tabs #6] 2 tab PO .TODAY, THEN 1 DAILY #6 tab Patient Education Materials: Serous Otitis Media (ED) Referrals: Luisito WHITE,Deep Nagel [Primary Care Provider] - Additional Instructions: FOLLOW UP WITH YOUR DOCTOR IF NOT COMPLETELY IMPROVED. GET RECHECKED SOONER WITH ANY WORSENING OF YOUR CONDITION OR QUESTIONS OR CONCERNS. - Billing Disposition and Condition Condition: STABLE Disposition: Home
== END 2018-11-11 16:35 | disposition home or self-care (01) ==
LOC: UCCORT 15:32
DX: H65.91 Unspecified nonsuppurative otitis media, right ear (principal); R09.89 Other specified symptoms and signs involving the circulatory and respiratory systems; K52.9 Noninfective gastroenteritis and colitis, unspecified; M79.10 Myalgia, unspecified site; J02.9 Acute pharyngitis, unspecified; M54.2 Cervicalgia; Z88.0 Allergy status to penicillin; Z88.1 Allergy status to other antibiotic agents
CPT/HCPCS: 99212; G0463

== ENCOUNTER 2019-03-13 12:01 | Emergency (ER) | payer BC ==
[2019-03-13 13:31] VITALS: BP 111/59
--- NOTE | 2019-03-13 13:46 | UC ---
Ear Complaint HPI - HPI Summary HPI Summary: 2 DAYS OF RIGHT EAR PAIN, BODY ACHES, SORE THROAT AND OVERALL MALAISE. NO HEARING LOSS OR DISCHARGE FROM THE EAR. NO COUGH OR CONGESTION. NO FEVER, NAUSEA/VOMITING. - History of Current Complaint Chief Complaint: UCEar Stated Complaint: FEVER,BODY ACHES,ST,RT EAR PAIN Time Seen by Provider: 03/13/19 13:31 Hx Obtained From: Patient Hx Last Menstrual Period: 03/04/19 Onset/Duration: Gradual Onset, Lasting Days, Still Present Severity Initially: Mild Severity Currently: Mild Pain Intensity: 2 Pain Scale Used: 0-10 Numeric Aggravating Factors: Nothing Alleviating Factors: Nothing Associated Signs/Symptoms: Negative: Discharge, Hearing Loss, Foreign Body Sensation, Trauma to Ear, Swelling @, URI Symptoms - Allergies/Home Medications Allergies/Adverse Reactions: Allergies Allergy/AdvReac Type Severity Reaction Status Date / Time Penicillins Allergy Severe Anaphylatic Verified 03/13/19 13:20 Shock vancomycin Allergy Hives Verified 03/13/19 13:20 Home Medications: Home Medications Acetaminophen [Acetaminophen Extra Strength] 1,000 mg PO Q3H PRN 03/13/19 [ History Confirmed 03/13/19] Ustekinumab [Stelara] 90 mg SQ SEE INSTRUCTIONS 03/13/19 [History Confirmed ] PMH/Surg Hx/FS Hx/Imm Hx Respiratory History: Asthma Other GI/ History: ULCERATIVE COLITIS Other History Of: Negative For: HIV, Hepatitis B, Hepatitis C, Anticoagulant Therapy - Surgical History Surgical History: Yes Surgery Procedure, Year, and Place: CHOLECYSTECTOMY. Abd surgery r/t abscess - Family History Known Family History: Positive: Cardiac Disease, Hypertension - Social History Alcohol Use: Rare Substance Use Type: None Smoking Status (MU): Never Smoked Tobacco - Immunization History Most Recent Influenza Vaccination: Not the Season Review of Systems All Other Systems Reviewed And Are Negative: Yes Constitutional: Positive: Fatigue ENT: Positive: Sore Throat, Ear Ache. Negative: Nasal Discharge Respiratory: Positive: Negative Cardiovascular: Positive: Negative Gastrointestinal: Positive: Negative Musculoskeletal: Positive: Myalgia Physical Exam Triage Information Reviewed: Yes Appearance: Well-Appearing, No Pain Distress, Well-Nourished Vital Signs: Initial Vital Signs Temp 97.6 F 03/13/19 13:24 Pulse 61 03/13/19 13:24 Resp 18 03/13/19 13:24 BP 111/59 03/13/19 13:24 Pulse Ox 100 03/13/19 13:24 Vital Signs Reviewed: Yes Eyes: Positive: Conjunctiva Clear ENT: Positive: Hearing grossly normal, Pharynx normal, TMs normal. Negative: Tonsillar swelling, Tonsillar exudate, Muffled voice, Hoarse voice Neck: Positive: Supple, Nontender, Tenderness @ - MILDLY TENDER RIGHT SPFL CERVICAL LAD, Enlarged Nodes @ - SPFL CERVICAL LAD - MILD Respiratory Exam: Normal Cardiovascular Exam: Normal Abdomen Description: Positive: Soft Musculoskeletal: Positive: No Edema Neurological: Positive: Alert Psychological: Positive: Age Appropriate Behavior Skin: Negative: Rashes Ear Complaint Course/Dx - Course Course Of Treatment: UNCLEAR ETIOLOGY OF PATIENT'S SYMPTOMS TODAY. PHYSICAL EXAM NORMAL. HAVE ADVISED CAREFUL OBSERVATION AT HOME WITH CLOSE PCP FOLLOW-UP IF HER SYMPTOMS DO NOT IMPROVE. SHE HAS DECLINED BLOOD WORK TODAY. - Differential Dx/Diagnosis Provider Diagnosis: Right ear pain Discharge - Sign-Out/Discharge Documenting (check all that apply): Patient Departure All imaging exams completed and their final reports reviewed: No Studies - Discharge Plan Condition: Stable Disposition: HOME Patient Education Materials: Earache (ED) Referrals: Luisito WHITE,Deep Nagel [Primary Care Provider] - If Needed Additional Instructions: PHYSICAL EXAM NORMAL TODAY. NO INDICATION OF ANY EAR INFECTION. THROAT LOOKS GOOD. LUNGS ARE CLEAR. NO INDICATION FOR ANTIBIOTICS OR ANY ACUTE INTERVENTION TODAY. ADVISED OTC MEDICATIONS FOR DISCOMFORT. STAY WELL HYDRATED. IF STILL NOT FEELING WELL IN A FEW DAYS FOLLOW-UP WITH PCP. EAR PAIN, NON-SPECIFIC There are many causes of ear pain in adults. Pain that's felt in the ear can actually be coming from somewhere nearby. This is called "referred pain." Problems in the teeth, throat, or jaw joint (TMJ) often cause ear pain. Sometimes the physical exam or medical history suggests a treatable cause. If not, we may wait for the pain to go away. New symptoms may offer a clue to the cause of the pain. Report any changes to your care provider. These are some conditions that can cause ear pain, but may not be obvious from physical examination: Eardrum injury Pressure changes (barotrauma) due to swimming or shock waves Mild trauma such as Q-tip injury or finger-picking the outer ear Mild outer ear infection (swimmer's ear) Low-grade or chronic middle ear infection Mastoiditis (infection in the bone behind the ear) TMJ syndrome or arthritis of the jaw Pressure from hard earwax Tooth infection Infected tonsil Sinus infection Nerve disease such as Ewing's Palsy Follow your care provider's treatment recommendations. Let the ear rest. Don't insert cotton swabs, dig at the ear with your finger, or force your ears to "pop." If you're not improving after a few days, or if new symptoms arise, see the doctor. Watch for: Decreased hearing Spreading pain or headache Drainage or bleeding from the ear Fever Weakness of the face muscles Other new symptoms - Billing Disposition and Condition Condition: STABLE Disposition: Home
== END 2019-03-13 13:51 | disposition home or self-care (01) ==
LOC: UCCORT 12:01
DX: H92.01 Otalgia, right ear (principal)
CPT/HCPCS: 99211; G0463

== ENCOUNTER 2019-04-03 07:25 | Emergency (ER) | payer BC ==
[2019-04-03 07:37] VITALS: BP 98/74
--- NOTE | 2019-04-03 07:57 | UC ---
Throat Pain/Nasal Mike HPI - HPI Summary HPI Summary: 33 year old female with sinus pressure, sore throat and fever . Productive discharge. (+) strep contacts at school. tried OTC with no relief. Nothing improves symptoms. No SOB - History of Current Complaint Chief Complaint: UCGeneralIllness Stated Complaint: SORE THROAT SINUS Time Seen by Provider: 04/03/19 07:54 Hx Obtained From: Patient Hx Last Menstrual Period: IUD Onset/Duration: Gradual Onset Pain Intensity: 2 Cough: Productive - Allergies/Home Medications Allergies/Adverse Reactions: Allergies Allergy/AdvReac Type Severity Reaction Status Date / Time Penicillins Allergy Severe Anaphylatic Verified 04/03/19 07:33 Shock vancomycin Allergy Hives Verified 04/03/19 07:33 Home Medications: Home Medications Pseudoephedrine TAB* [Sudafed TAB*] 30 mg PO Q6H PRN 04/03/19 [History Confirmed 04/03/19] PMH/Surg Hx/FS Hx/Imm Hx Previously Healthy: Yes GI/ History: Other - UC Other History Of: Negative For: HIV, Hepatitis B, Hepatitis C, Anticoagulant Therapy - Surgical History Surgical History: Yes Surgery Procedure, Year, and Place: CHOLECYSTECTOMY. Abd surgery r/t abscess - Family History Known Family History: Positive: Cardiac Disease, Hypertension - Social History Occupation: Employed Full-time Alcohol Use: Occasionally Substance Use Type: None Smoking Status (MU): Never Smoked Tobacco - Immunization History Most Recent Influenza Vaccination: Not the Season Review of Systems All Other Systems Reviewed And Are Negative: Yes Constitutional: Positive: Fever ENT: Positive: Sore Throat, Ear Ache, Nasal Discharge, Sinus Congestion, Sinus Pain/Tenderness Physical Exam Triage Information Reviewed: Yes Appearance: Well-Appearing, No Pain Distress, Well-Nourished Vital Signs: Initial Vital Signs Temp 97.1 F 04/03/19 07:34 Pulse 66 04/03/19 07:34 Resp 14 04/03/19 07:34 BP 98/74 04/03/19 07:34 Pulse Ox 99 04/03/19 07:34 Vital Signs Reviewed: Yes Eye Exam: Normal ENT: Positive: Pharyngeal erythema, Nasal congestion, Nasal drainage, TM dull, Sinus tenderness Neck exam: Normal Respiratory Exam: Normal Cardiovascular Exam: Normal Musculoskeletal Exam: Normal Neurological Exam: Normal Neurological: Positive: Alert Psychological Exam: Normal Skin Exam: Normal Throat Pain/Nasal Course/Dx - Course Course Of Treatment: Viral at this time. (+) risk factors --- try OTC meds liks netti pot, flonase, dayquil and Nyquil and if Sx worsen then start Abx. RTo if any concerns. Aware of SE of meds - Differential Dx/Diagnosis Differential Diagnosis/HQI/PQRI: Sinusitis, Tonsillitis, URI Provider Diagnosis: Sinusitis Discharge - Sign-Out/Discharge Documenting (check all that apply): Patient Departure All imaging exams completed and their final reports reviewed: No Studies - Discharge Plan Condition: Good Disposition: HOME Prescriptions: Cefdinir [Cefdinir 300 MG CAP] 300 mg PO BID #20 capsule Patient Education Materials: Sinusitis (ED) Referrals: Luisito WHITE,Deep Nagel [Primary Care Provider] - 2 Days Additional Instructions: As we discussed over the next few days please use DayQuil/NyQuil with flonase and Netti Pot and if your symptoms worsen then start the antibiotic. - Billing Disposition and Condition Condition: GOOD Disposition: Home
== END 2019-04-03 08:14 | disposition home or self-care (01) ==
LOC: UCCORT 07:25
DX: J32.9 Chronic sinusitis, unspecified (principal); Z88.0 Allergy status to penicillin; Z88.1 Allergy status to other antibiotic agents
CPT/HCPCS: 99212; G0463

== ENCOUNTER 2019-08-11 10:20 | Emergency (ER) | payer BC ==
[2019-08-11 11:18] VITALS: BP 111/74
--- NOTE | 2019-08-11 11:29 | UC ---
Respiratory Complaint HPI - HPI Summary HPI Summary: Patient is a 34 yo female presents to urgent care stating that for probably 10 days she's had head congestion that then became sore throat and laryngitis. Patient states she was improving 2 days ago when she started to get sick again. Patient states she now feels like her chest is full and she has a productive cough. Patient fatigue. Patient states her symptoms are worse at night. Patient taking [id number] medication with improvement. Patient's fever was 101.3 this morning. Patient did take Motrin. Patient is immunocompromised as she has ulcers colitis and is on an agent for that. Patient states she is not . Patient's son has bronchitis. Patient with a history of childhood asthma. Patient's medications reviewed this visit. - History of Current Complaint Chief Complaint: UCRespiratory Stated Complaint: COLDSYMP/COUGH /SORE THROAT Time Seen by Provider: 08/11/19 11:07 Hx Obtained From: Patient Hx Last Menstrual Period: PERIODS ARE IRREG.LAST PERIOD ONSET 07/28/19 ?: No Onset/Duration: Gradual Onset Severity Initially: Mild Severity Currently: Moderate Pain Intensity: 2 - Allergies/Home Medications Allergies/Adverse Reactions: Allergies Allergy/AdvReac Type Severity Reaction Status Date / Time Penicillins Allergy Severe Anaphylatic Verified 08/11/19 11:07 Shock vancomycin Allergy Hives Verified 08/11/19 11:07 Home Medications: Home Medications Conjugated Estrogens TAB* [Premarin TAB*] 0.3 mg PO DAILY 08/11/19 [History Confirmed 08/11/19] Guaifenesin/Pseudoephedrne HCl [Mucinex D] 1 tab PO Q12H PRN 08/11/19 [History Confirmed 08/11/19] Ibuprofen TAB* [Advil TAB*] 400 mg PO Q6H PRN 08/11/19 [History Confirmed ] Levonorgestrel (Iud) [Mirena IUD] 0 mcg 08/11/19 [History] PMH/Surg Hx/FS Hx/Imm Hx Previously Healthy: Yes GI/ History: Other - Ulcerative colitis on immunosuppressant Other History Of: Negative For: HIV, Hepatitis B, Hepatitis C, Anticoagulant Therapy - Surgical History Surgical History: Yes Surgery Procedure, Year, and Place: CHOLECYSTECTOMY. Abd surgery r/t abscess - Family History Known Family History: Positive: Cardiac Disease, Hypertension, Non-Contributory - Social History Occupation: Employed Full-time - Speech pathologist Lives: With Family Alcohol Use: Occasionally Substance Use Type: None Smoking Status (MU): Never Smoked Tobacco - Immunization History Most Recent Influenza Vaccination: Not the Season Review of Systems All Other Systems Reviewed And Are Negative: Yes Constitutional: Positive: Fever - Tactile, Fatigue ENT: Positive: Sore Throat, Ear Ache, Sinus Congestion Respiratory: Positive: Cough, Other - Wheeze Cardiovascular: Positive: Negative Gastrointestinal: Positive: Negative Genitourinary: Positive: Negative Physical Exam - Summary Physical Exam Summary: Vital Signs Reviewed: Yes A+Ox3, tired appearing, congested Eyes: Conjunctiva Clear, SANDRO. EOM intact and full ENT: Hearing grossly normal TM x 2 clear, turbinates inflammed and boggy, + PND , mmoist, uvula midline, no exudate, no erythema Neck: Positive: Supple Respiratory: Positive: No respiratory distress, No accessory muscle use + coarse cough, scattered wheeze, + BS throughout Cardiovascular: RRR nl s1, s2 no m/r CBT <2 sec abd soft + BS nt/nd no guarding, no distension Musculoskeletal Exam: COSTELLO x 4 without difficulty Strength Intact, ROM Intact Neurological: Positive: Alert, + sensation throughout Psychological: Positive: Normal Response To examiner Skin: Positive: no rash, no ecchymosis Triage Information Reviewed: Yes Vital Signs: Initial Vital Signs Temp 98.1 F 08/11/19 11:13 Pulse 70 08/11/19 11:13 Resp 14 08/11/19 11:13 BP 111/74 08/11/19 11:13 Pulse Ox 100 08/11/19 11:13 Re-Evaluation - Re-Evaluation First Eval Comment: Patient states she feels better following her nap. Patient with improved aeration without wheezing. Coughing is less. We'll prescribe albuterol MDI with spacer. We'll continue antibiotics. Secretion precautions discussed. Encourage plenty respiratory we'll give Diflucan as patient states she gets vaginal infections. Strict return precautions discussed. Patient comfortable with the plan. Patient was given a work note. Respiratory Course/Dx - Course Course Of Treatment: Patient presents to urgent care for evaluation of head congestion and his also throw progressive over last 10 days. Patient states she had a fever this morning of 101.3. Patient states she coughs nothing comes up. Patient does have wheeze. Patient is immunocompromised. On exam vital signs are stable. Patient does have sinus congestion postnasal drip and coarse cough. Patient also noted to have wheezing with inspiratory and expiratory. We'll give DuoNeb and reassessed. 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 Patient called Jim vazquez. - Differential Dx/Diagnosis Provider Diagnosis: Acute bronchitis Discharge ED - Sign-Out/Discharge Documenting (check all that apply): Patient Departure All imaging exams completed and their final reports reviewed: No Studies - Discharge Plan Condition: Stable Disposition: HOME Prescriptions: Albuterol HFA INHALER* [Ventolin HFA Inhaler*] 2 puff INH Q4H PRN #1 mdi PRN Reason: wheeze DOXYcycline CAP(*) [DOXYcycline 100MG CAP(*)] 100 mg PO BID #20 cap Fluconazole 150 MG TAB* [Diflucan 150 MG TAB*] 150 mg PO ONCE PRN #1 tablet PRN Reason: vaginal yeast infection Inhaler, Assist Devices [Aerochamber Mv] 1 each PO Q4HR #1 spacer Patient Education Materials: Acute Bronchitis (ED) Forms: *Gen. Provider Communication, *Work Release Referrals: Luisito WHITE,Deep Nagel [Primary Care Provider] - Additional Instructions: - Take antibiotics exactly as prescribed until gone -Use your albuterol puffer - 2 puffs ever 4 hours for the next 2 days - then as needed -These infections are spread by oral secretions. Do not share eating or drinking utensils. Frequent hand washing is important. Clean items that may get your secretions on them such as cell phones, ipads, computer mouse, television remotes. Once you have been on antbiotics for 2 days, change your pillowcase and your toothbrush -Stay well hydrated - avoid excess caffeine and all alcohol - Eat regular, healthy meals - get plenty of restful sleep -Contact your doctor to arrange a follow-up appointment this week. Call your doctor, return here or go to the emergency department with any questions or concerns - Billing Disposition and Condition Condition: STABLE Disposition: Home
[2019-08-11] MEDS ORDERED: Albuterol/Ipratropium NEB.SOL* Albuterol 2.5 MG/Ipratropium 0.5 MG 3 ML INH ONE (11:34)
[2019-08-11 11:58] LABS: Influenza A Molecular NEGATIVE (Negative); Influenza B Molecular NEGATIVE (Negative)
== END 2019-08-11 12:12 | disposition home or self-care (01) ==
LOC: UCCORT 10:20
DX: J20.9 Acute bronchitis, unspecified (principal); R53.83 Other fatigue; H92.09 Otalgia, unspecified ear; R09.81 Nasal congestion; K51.90 Ulcerative colitis, unspecified, without complications; Z88.0 Allergy status to penicillin; Z88.1 Allergy status to other antibiotic agents; Z79.899 Other long term (current) drug therapy
CPT/HCPCS: 87651; 99212; A9270-GY; G0463

== ENCOUNTER 2019-10-30 13:11 | Emergency (ER) | payer BC ==
--- OUTSIDE RECORDS SUMMARY | 2019-10-30 13:43 | XMS REPORT | Continuity of Care Document ---
:1985 Author Organization 0001 - [facility] Address [address] [place] [address] Phone Care Team Providers Name Role Phone MUSTAPHA MANDEL MD Unavailable Unavailable Allergies, Adverse Reactions, Alerts Substance Reaction Status calcium rash Active vancomycin Trouble Breathing Active MULTIVITAMIN hives Active erythromycin base Active Penicillins Active Medications Medication Instructions Dosage Effective Dates Status Comments (start - stop) Effexor XR 75 mg take 1 by Oral route 1 - Active capsule,extended every day release mesalamine 4 insert 60 milliliter 4 G - Active gram/60 mL enema by rectal route every day at bedtime albuterol sulfate 2 puffs q4h prn as - Active HFA 90 needed mcg/actuation aerosol inhaler NuvaRing 0.[address] 1 by Vaginal 1.00 - Active -0.015 mg/24 hr route every 3 Vaginal months clindamycin 300 mg take 1 capsule by 300 MG - Active capsule oral route every 6 hours ibuprofen 800 mg take 1 tablet by 800 MG - Active tablet oral route 3 times every day with food Calcium 500 500 mg take 2 by Oral route 2 - Active calcium (1,250 mg) 2 times every day tablet Lialda 1.2 g take 6 tablet by - Active tablet,delayed oral route every release day with a meal Effexor XR 75 mg take 1 by Oral route 1 - No Longer capsule,extended every day Active release Problems Condition Effective Dates (start - stop) Clinical Status Encntr for general adult medical exam w/o abnormal findings Adult BMI 27.0-27.9 kg/sq m Concussion, without loss of consciousness, initial encounter Colitis, ulcerative NOS Cellulitis Colitis, ulcerative NOS Skin abscess Vitamin D deficiency disease Urinary Tract Infection - Urinary Tract Infection Fatigue / Malaise Urinary Tract Infection - Fatigue / Malaise - General medical exam Colitis Routine Medical Exam - Noninfectious Gastroenteritis - Hypoglycemia NOS - Routine Medical Exam - Examination, routine medical - Colitis, ulcerative NOS - Sprain/strain, ankle NOS Acute Bronchitis, acute Moderate Routine Medical Exam Routine Procedures Procedure Date Procedure Unknown Results Test Name Date and Time Measure Units Reference Range Abnormal Flag Status Comments Unknown Encounters Encounter Practice Location Reason(s) Diagnoses Date Provider Providers Description For Visit Copied on Encounter [facility], Primary MUSTAPHA. Care [address] [place], [place], [place] [address], [facility], tel:[phone] tel: [phone] 2019 [facility] Novinda, Primary MUSTAPHA. Care [address], [place], [place], [facility], [facility], tel:[phone] tel: [phone] 2019 [facility] [place], Primary MUSTAPHA. Care [address] [place], [place], [place], [facility], [facility], tel: [phone] tel: [phone] 2019 [facility] [employer], Primary GRNUR. . Care [address] [place], [place], [facility], tel:[phone] 2019 [facility] Encntr for general Novinda, Primary adult medical exam MUSTAPHA. Care w/o abnormal 6 15 Hossein Bajwa findingsAdult BMI [facility], 27.0-27.9 kg/sq m [facility], [place], [place], [place], [address], [facility], tel:[phone] tel:[phone] 0001 - [facility] Concussion, without Dec-1 [facility], Primary loss of 8 MUSTAPHA. Care consciousness, 5 15 Hossein Bajwa initial encounter [facility], [place], [place], [place], [address], [facility], tel:[phone] tel:[phone] 0001 - [facility] Colitis, ulcerative Aug-2 [facility], Primary NOS 6-201 [place]. Care 4 15 Hossein Bajwa [facility], [place], [place], [place], [address], [facility], tel:[phone] tel:[phone] 0001 - [facility] Cellulitis Feb-1 [facility], Primary 2-201 [place]. Care 4 15 Hossein Bajwa [facility], [place], [place], [place], [facility], [facility], tel:[phone] tel:[phone] 0001 - [facility] Colitis, ulcerative Dec-0 [facility], Primary NOSSkin abscess 3-201 [place]. Care 3 15 Hossein Bajwa [facility], [place], [place], [place], [address], [facility], tel:[phone] tel:[phone] 0001 - [facility] Vitamin D deficiency Apr-0 [facility], Primary disease 8 [place]. Care 3 15 Hossein Bajwa [facility], [place], [place], [place], [address], [facility], tel:[phone] tel:[phone] 0001 - [facility] Urinary Tract Apr-0 [facility], Primary InfectionUrinary 5- MUSTAPHA. Care Tract 3 15 Hossein Bajwa InfectionFatigue / [facility], MalaiseUrinary Tract [facility], [facility] InfectionFatigue / [place], [place], [place]ise [place], [address], [place], tel: [phone] tel: [phone] 0001 [facility] General medical May- [facility], Primary examColitisRoutine Care Medical ExamRoutine 1 Hosseinalirio Bajwa [facility], ExamNoninfectious [place] GastroenteritisHypogl [place], [place], ycemia NOSRoutine [address], Medical Exam tel: [phone] 0001 [facility] Bronchitis, acute Jul- [facility], Primary 9-200 MUSTAPHA. Provider: Care 9 15 MUSTAPHA Bajwa [facility], [facility], [address] [place] [address], [place], [place], [facility], [address], [facility], [place], tel: [phone] [place], [phone] tel: tel: [phone] 0001 [facility] Sprain/strain, ankle Mar-0 [facility], Primary NOS 4-200 MUSTAPHA. Care 9 15 Hossein Bajwa [facility], [place], [place], [place], [address], [facility], tel: [phone] tel: [phone] 0001 [facility] Examination, routine [facility], Primary medicalColitis, 8-200 MUSTAPHA. Care ulcerative NOS 8 15 Hossein Bajwa [facility], [place], [place], [place], [address], [facility], tel: [phone] tel: [phone] Family History Family Member Diagnosis Age At Onset Maternal grandmother Diabetes mellitus Father Hypertension Father Hyperlipidemia Paternal aunt Diabetes mellitus Father Diabetes mellitus Maternal aunt Diabetes mellitus Family history of family history of - Paternal grandfather Alcoholism Mother Asthma Immunizations Vaccine Date Status Comments Influenza, injectable, administered Note: abstracted 08/24/19 ; quadrivalent, preservative Source: Other Provider free, split virus Influenza, injectable, administered Note: abstracted 08/03/17 ; quadrivalent, preservative Source: Other Provider free, split virus TDAP (Boostrix or Adacel) administered Source: Parents Recall hep B (ped/adol, 3 dose) administered Note: Abstracted -2007 ; Source: New Immunization Record hep B (ped/adol, 3 dose) administered Note: Abstracted -2007 ; Source: New Immunization Record MMR administered Note: Abstracted -08/10/2008 ; Source: New Immunization Record hep B (ped/adol, 3 dose) administered Note: Abstracted 2007 ; Source: New Immunization Record Td (adult) administered Note: Abstracted 08/10/2008 ; Source: New Immunization Record Payers Payer name Insurance type Covered republican ID Authorization(s) Unknown Social History Type Description Quantity Date Captured Comments Alcohol Use Details Unknown Caffeine Use Details Unknown Tobacco Use Status Unknown Smoking Status Unknown Vital Signs Date / Height Weight BMI Pulse Blood Temperature Respiratory Body Head BMI Time: Rate Pressure Rate Surface Circumference percentile Area Unknown Chief Complaint And Reason For Visit No information Reason For Referral Reason For Referral Unknown Plan Of Care Date Type Action Status Unknown Date Type Problem Goal Intervention Status Start Date Unknown History Of Present Illness Encounter Date Complaint History Of Present Illness No information Functional Status Encounter Date Functional Assessment Cognitive Assessment Unknown Medications Administered Medication Instructions Dosage Effective Dates (start - stop) Status Comments Drug Treatment Unknown Instructions Date Instruction Additional Information f/u prn Related to Encntr for general adult medical exam w/o abnormal findings with pt - he will take her to Related to Concussion, without loss [facility] for evaluation and scanning; I of consciousness, initial encounter spoke to [facility] charge nurse refilled effexor; f/u prn Related to Colitis, ulcerative NOS
--- OUTSIDE RECORDS SUMMARY | 2019-10-30 13:43 | XMS REPORT ---
:1985 Author Organization [facility] Address [address] [place] [address] Support Name Relationship Address Phone Susy Mendez Unavailable [address] [phone] [place] [address] Robert Mendez Unavailable 10/15 [facility] [phone] [place] [address] Care Team Providers Name Role Phone Maddy Ferguson Unavailable Unavailable PROBLEMS Type Condition ICD9-CM Code [id number] Code Onset Condition SNOMED Code Dates Status Problem Excessive and N92.0 Active 574619269 frequent menstruation Problem Family history of Z80.3 Active 641899208 malignant neoplasm of breast Problem 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, unspecified, without complications Problem Irregular N92.6 Active 64370983 menstruation, unspecified ALLERGIES No Information ENCOUNTERS Encounter Location Date Diagnosis [facility] [address] Apr, OBGYN [place] [id number] [facility] [address] [facility] Mar, Excessive and frequent [address] [place], menstruation N92.0 and [place] [id number] Family history of malignant neoplasm of breast Z80.3 [facility] [address] [facility] Sep, Encounter for Road [address] [place], gynecological examination [place] [id number] (general) (routine) without abnormal findings Z01.419 ; Excessive and frequent menstruation N92.0 ; Encounter for screening for malignant neoplasm of cervix Z12.4 ; Encounter for routine checking of intrauterine contraceptive device Z30.431 and Family history of malignant neoplasm of breast Z80.3 [facility] 103 Aug, OBGYN [place], [place] [id number] [facility] 103 Jul, OBGYN [place] [id number] [facility] 103 Jul, Encounter for insertion OBGYN [facility], of intrauterine [place] [id number] contraceptive device Z30.430 [facility] 103 Jun, OBGYN [place], [place] [id number] [facility] 103 Jun, Excessive and frequent OBGYN [facility], menstruation N92.0 [place] [id number] [facility] [address] May, Excessive and frequent [address] [facility] [address], [place] [id number] menstruation N92.0 [facility] 103 May, Excessive and frequent OBGYN [facility], menstruation N92.0 [place] [id number] [facility] 103 Apr, OBGYN [place] [id number] [facility] 103 Apr, Excessive and frequent OBGYN [facility], menstruation N92.0 [place] [id number] [facility] 103 Apr, Excessive and frequent OBGYN [facility], menstruation N92.0 and [place] [id number] Irregular menstruation, unspecified N92.6 [facility] 103 Apr, Excessive and frequent OBGYN [facility], menstruation N92.0 [place] [id number] [facility] 103 Mar, Irregular menstruation, OBGYN [facility], unspecified N92.6 [place] [id number] [facility] 103 Dec, OBGYN [place] [id number] [facility] 103 Dec, OBGYN [place] [id number] [facility] 103 Nov, Irregular menstruation, OBGYN [facility], unspecified N92.6 and [place] [id number] Encounter for contraceptive management, unspecified Z30.9 [facility] 103 Nov, Irregular menstruation, OBGYN [facility], unspecified N92.6 and [place] [id number] Pelvic and perineal pain R10.2 [facility] 103 Nov, [place]YN [place] [id number] [facility] 103 Aug, [place] [id number] [facility] 103 Aug, Encounter for OBGYN [facility], gynecological examination [place] [id number] (general) (routine) with abnormal findings Z01.411 ; PELVIC PAIN 625.9 ; Irregular menstruation, unspecified N92.6 and Family history of malignant neoplasm of breast Z80.3 [facility] 103 Jun, [place]YN [place], [place] [id number] [facility] 103 Jun, Encounter for OBGYN [facility], gynecological examination [place] [id number] (general) (routine) without abnormal findings Z01.419 [facility] 103 16 Jun, 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 OBGYN [facility] V72.31 [place] [id number] [facility] 103 Jun, ROUTINE TOUR BUS DRIVER EXAMINATION OBGYN [facility], V72.31 [place] [id number] [facility] 103 Mar, OBG[place] [id number] [facility] [address] [place] [address] May, ROUTINE TOUR BUS DRIVER EXAMINATION [address] [place], V72.31 [place] [id number] [facility] 103 May, ROUTINE TOUR BUS DRIVER EXAMINATION OBGYN [facility], V72.31 and PAP SMEAR W/O [place] [id number] TOUR BUS DRIVER EXAM V76.2 [facility] 103 May, ROUTINE TOUR BUS DRIVER EXAMINATION OBGYN [facility], V72.31 [place] [id number] [facility] 103 May, OBG[place] [id number] [facility] 103 May, [place], [place] [id number] [facility] 103 May, OBG[place] [id number] [facility] 103 Jun, ROUTINE TOUR BUS DRIVER EXAMINATION OBGYN [facility], V72.31 ; PAP SMEAR W/O [place] [id number] TOUR BUS DRIVER EXAM V76.2 and CONTRACEPT SURVEILL NOS V25.40 [facility] 103 May, OBGYN [place], [place] [id number] [facility] 103 Apr, ROUTINE TOUR BUS DRIVER EXAMINATION OBGYN [facility], V72.31 [place] [id number] [facility] 103 Apr, ROUTINE TOUR BUS DRIVER EXAMINATION OBGYN [facility], V72.31 [place] [id number] [facility] 103 Apr, PELVIC PAIN 625.9 and OBGYN [facility], VAGINAL DISCHARGE 623.5 [place] [id number] [facility] 103 Apr, Ovarian cyst NOS 620.2 OBGYN [place] [id number] [facility] 103 Apr, ROUTINE TOUR BUS DRIVER EXAMINATION OBGYN [facility], V72.31 and OVARIAN CYST [place] [id number] NEC/NOS 620.2 IMMUNIZATIONS No Known Immunizations SOCIAL HISTORY Never Assessed REASON FOR REFERRAL FUNCTIONAL STATUS PLAN OF CARE VITAL SIGNS MEDICATIONS Unknown Medications PROCEDURES No Known procedures RESULTS No Results REASON FOR VISIT pelvic US - Voice/txt msg sent 07/16/19 Insurance Providers [facility] Health Member Patient Patient Patient Patient Patient Subscriber Subscriber Subscriber Group Insurance Plan Plan Plan Plan ID Relationship Address Phone Name Date of ID Name Date of No Type Insurance Insurance Insurance Coverage to Subscriber Address Phone Name Dates [employer] [phone] [employer] self Susy 1985 [id number] Blue [id number] 89 Blue Mendez 7 Cross/[place] Cross/Blue Shield [id number] Shield [employer] [phone] [employer] self Susy 1985 [id number] Blue [id number] 89 Blue Mendez 7 [place] Cross/Blue Shield [address] Shield Blue [phone] Blue self Susy [id number] Cross/Blue [id number] 16 Cross/Blue Mendez 0 Shield [facility] [address] Excell[employer] [phone] [employer] self Susy 1985 [id number] Blue [id number] 89 Blue Mendez 6 [place] Cross/Blue Shield [address] Shield [employer] [phone] [employer] self Susy 1985 [id number] Blue [id number] 89 Blue Mendez 7 Cross/Blue [place] Cross/Blue Shield [address] Shield Blue [phone] Blue self Susy [id number] Cross/Blue [id number] 16 Cross/Blue Mendez 2 03 Shield [facility] [address] MEDICAL (GENERAL) HISTORY Type Description Date Medical [...]
[2019-10-30 13:49] VITALS: BP 100/76
--- NOTE | 2019-10-30 13:58 | UC ---
FLU HPI - HPI Summary HPI Summary: 34 year old female with flu like illness. Coughing started a day ago. had flu/bronchitis last week. 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 Flu symptoms (since Saturday) are minimizing but coughing and chest tightness are worsening. she is worried about bronchitis / pneumonia - History of Current Complaint Chief Complaint: UCGeneralIllness Stated Complaint: COUGH Time Seen by Provider: 10/30/19 13:52 Hx Obtained From: Patient Hx Last Menstrual Period: 2 weeks ago-has IUD (cycles sporadic) Pain Intensity: 0 Related Hx: Possible Flu/Infectious Exposure - Allergy/Home Medications Allergies/Adverse Reactions: Allergies Allergy/AdvReac Type Severity Reaction Status Date / Time Penicillins Allergy Severe Anaphylatic Verified 10/30/19 13:49 Shock vancomycin Allergy Hives Verified 10/30/19 13:49 PMH/Surg Hx/FS Hx/Imm Hx Previously Healthy: Yes GI/ History: Other - colitis Psychological History: Anxiety, Depression Other History Of: Negative For: HIV, Hepatitis B, Hepatitis C, Anticoagulant Therapy - Surgical History Surgical History: Yes Surgery Procedure, Year, and Place: CHOLECYSTECTOMY. Abd surgery r/t abscess - Family History Known Family History: Positive: Cardiac Disease, Hypertension, Non-Contributory - Social History Alcohol Use: Occasionally Substance Use Type: None Smoking Status (MU): Never Smoked Tobacco - Immunization History Most Recent Influenza Vaccination: Not the Season Review of Systems All Other Systems Reviewed And Are Negative: Yes Constitutional: Positive: Fever, Chills, Fatigue ENT: Positive: Nasal Discharge Respiratory: Positive: Cough Musculoskeletal: Positive: Myalgia Is Patient Immunocompromised?: Yes Physical Exam Triage Information Reviewed: Yes Appearance: Well-Appearing, No Pain Distress, Well-Nourished Vital Signs: Initial Vital Signs Temp 99.6 F 10/30/19 13:43 Pulse 103 10/30/19 13:43 Resp 18 10/30/19 13:43 BP 100/76 10/30/19 13:43 Pulse Ox 96 10/30/19 13:43 Vital Signs Reviewed: Yes Eye Exam: Normal ENT Exam: Normal ENT: Positive: Nasal congestion, Nasal drainage Dental Exam: Normal Neck exam: Normal Neck: Positive: 1 Respiratory Exam: Normal Cardiovascular Exam: Normal Musculoskeletal Exam: Normal Neurological Exam: Normal Psychological Exam: Normal Skin Exam: Normal Flu Course/Dx - Course Course Of Treatment: Patient with history of immunosuppression secondary to colitis. Fluid testing negative. Advised conservative and supportive care. Given a prescription for benzonatate. She is concerned about this turning into a bronchitis or a pneumonia as her has a bronchitis currently. I told her likely viral in nature so not going to become something to worry about for a bacterial pneumonia but nonetheless if symptoms worsen over the next few days she will have antibiotics available to take. She is aware and agreeable to plan as well as to side effects medication. If symptoms worsen go to emergency room. - Differential Dx/Diagnosis Differential Diagnosis/HQI/PQRI: Bronchitis, Broncholiolitis, Influenza, Pneumonia, RSV, Upper Respiratory Infection Provider Diagnosis: URI (upper respiratory infection) Discharge ED - Sign-Out/Discharge Documenting (check all that apply): Patient Departure All imaging exams completed and their final reports reviewed: No Studies - Discharge Plan Condition: Good Disposition: HOME Prescriptions: Azithromycin TAB* [Zithromax TAB (Z-VINCENZO) 250 mg #6 tabs] 2 tab PO .TODAY, THEN 1 DAILY #1 vincenzo Benzonatate CAP* [Tessalon 100 MG CAP*] 100 mg PO TID PRN #20 cap PRN Reason: Cough Patient Education Materials: Upper Respiratory Infection (ED) Referrals: Luisito WHITE,Deep Nagel [Primary Care Provider] - 3 Days Additional Instructions: As we discussed her symptoms likely are viral in nature. At this time please continue with fluids and supportive care as well as cough suppressant for the evening. If your symptoms persist or worsen over the next 3-4 days then at that time start antibiotics. - Billing Disposition and Condition Condition: GOOD Disposition: Home
[2019-10-30 14:13] LABS: Influenza A Molecular NEGATIVE (Negative); Influenza B Molecular NEGATIVE (Negative)
== END 2019-10-30 14:27 | disposition home or self-care (01) ==
LOC: UCCORT 13:11
DX: J06.9 Acute upper respiratory infection, unspecified (principal); Z88.0 Allergy status to penicillin; Z88.1 Allergy status to other antibiotic agents
CPT/HCPCS: 99212; G0463